=== PATIENT | female | born 1940 | race Caucasian/White ===

== ENCOUNTER 2018-09-25 06:09 | Observation (INO) | payer MEDICARE ==
[~2018-09-25] VITALS: Ht 160 cm; Wt 69.3 kg
[~2018-09-25 06:09] MED LIST: ASPI-496 PO; ATEN25TA PO; ATOR-2 PO; FUROSEMIDE PO; LISI-167 PO; METF500T17 PO
[2018-09-25] MEDS ORDERED: LACTATED RINGERS 1,000 ML IV SCH (06:42)
[2018-09-25 07:28] VITALS: BP 171/76
[2018-09-25 07:30] LABS: BASOPHILS # (AUTO) 0.04 x10^3/uL (0-0.1); BASOPHILS % (AUTO) 1 % (0-1); EOSINOPHILS # (AUTO) 0.04 x10^3/uL (0-0.4); EOSINOPHILS % (AUTO) 1 % (1-7); LYMPHOCYTES # (AUTO) 2.01 x10^3/uL (1-3.4); LYMPHOCYTES % (AUTO) 30 % (22-44); MD NO; MEAN CORPUSCULAR HEMOGLOBIN 31.7 pg (27.0-34.8); MEAN CORPUSCULAR HGB CONC 33.7 g/dL (32.4-35.8); MEAN CORPUSCULAR VOLUME 94.3 fL (80-100); MEAN PLATELET VOLUME 9.3 fL (7.4-10.4); MONOCYTES # (AUTO) 0.64 x10^3/uL (0.2-0.8); MONOCYTES % (AUTO) 9 % (2-9); NEUTROPHILS # (AUTO) 4.09 x10^3/uL (1.8-6.8); NEUTROPHILS % (AUTO) 60 % (42-75); PLATELET COUNT 224 x10^3/uL (130-400); RED BLOOD COUNT 3.78 x10^6/uL (3.82-5.3); RED CELL DISTRIBUTION WIDTH 13.3 % (9.6-15.2)
[2018-09-25 07:36] LABS: ANION GAP 7 mmol/L (5-15); CALCIUM 8.2 mg/dL (8.5-10.1); CHLORIDE 101 mmol/L (98-107); CREATININE 1.23 mg/dL (0.55-1.02)
[2018-09-25] MEDS ORDERED: FLUMAZENIL 0.1 MG/1 ML, 5ML ONE (07:56)
[2018-09-25] MEDS ORDERED: FENTANYL PF 100 MCG/2ML ONE ×2 (07:56)
[2018-09-25] MEDS ORDERED: NITROGLYCERIN 5 MG/ML, 10ML ONE (07:56)
[2018-09-25] MEDS ORDERED: MIDAZOLAM 1 MG/ML, 5ML ONE (07:56)
[2018-09-25] MEDS ORDERED: NALOXONE 1 MG/ML, 2ML ONE (07:57)
[2018-09-25] MEDS ORDERED: LIDOCAINE-MPF 1%, 5ML ONE (07:57)
[2018-09-25] MEDS ORDERED: HEPARIN 1,000 UNITS/ML, 10ML ONE (07:57)
[2018-09-25] MEDS ORDERED: PROTAMINE SULFATE 10 MG/ML, 25ML ONE (07:57)
[2018-09-25] MEDS ORDERED: SODIUM CHLORIDE 0.9% 1,000 ML IV SCH (09:30)
[2018-09-25] MEDS ORDERED: VISIPAQUE 270 MG/ML, 150ML BOTTLE ONE (09:33)
[2018-09-25] MEDS ORDERED: CLOP75TA52 PO (09:47)
[2018-09-25] MEDS ORDERED: CLOPIDOGREL 300 MG TABLET PO ONE (10:30)
== END 2018-09-29 17:36 | disposition home or self-care (01) ==
LOC: OUT 06:09 → ORIP 09:30
PROVIDERS: ADMIT Surgery; ATTEND Surgery
DX: I70.212 Atherosclerosis of native arteries of extremities with intermittent claudication, left leg (principal); I83.811 Varicose veins of right lower extremity with pain; E11.51 Type 2 diabetes mellitus with diabetic peripheral angiopathy without gangrene; E78.5 Hyperlipidemia, unspecified; E11.22 Type 2 diabetes mellitus with diabetic chronic kidney disease; I12.9 Hypertensive chronic kidney disease with stage 1 through stage 4 chronic kidney disease, or unspecified chronic kidney disease; N18.3 Chronic kidney disease, stage 3 (moderate); R60.0 Localized edema; Z86.73 Personal history of transient ischemic attack (TIA), and cerebral infarction without residual deficits
CPT/HCPCS: 36415; 37225; 75625; 75710; 76937; 80048; 82962; 85025; 99156; 99157; C1714; C1725; C1751; C1760; C1769; C1884; C1894; G0378; J1644; J2250; J3010; J7120; Q9966; J2720; J2310